=== PATIENT | female | born 1955 | race Caucasian/White ===

== ENCOUNTER 2017-03-14 11:28 | Outpatient (CLI) | payer OTHER | END 2017-03-14 11:29 | disposition home or self-care (01) | DRG 556 | LOC: CONVCARE 11:28 | PROVIDERS: ATTEND Orthopaedic Surgery | DX: M25.552 Pain in left hip (principal) ==

== ENCOUNTER 2017-08-22 10:00 | Outpatient (CLI) | payer OTHER | END 2017-08-22 10:01 | disposition home or self-care (01) | DRG 556 | LOC: CONVCARE 10:00 | PROVIDERS: ATTEND Orthopaedic Surgery | DX: M25.552 Pain in left hip (principal) ==

== ENCOUNTER 2018-02-27 10:00 | Outpatient (CLI) | payer OTHER | END 2018-02-27 10:01 | disposition home or self-care (01) | DRG 556 | LOC: CONVCARE 10:00 | PROVIDERS: ATTEND Orthopaedic Surgery | DX: M25.552 Pain in left hip (principal) ==